=== PATIENT | female | born 1925 | race African-American/Black ===

== ENCOUNTER → 2016-07-22 | Outpatient (CLI) | payer MEDICARE, OTHER | END | disposition home or self-care (01) | LOC: MRI 10:35 | PROVIDERS: ATTEND Internal Medicine Critical Care Medicine | DX: Z53.8 Procedure and treatment not carried out for other reasons (principal); M54.10 Radiculopathy, site unspecified ==

== ENCOUNTER → 2016-11-09 | Outpatient (CLI) | payer MEDICARE, BC | END | disposition home or self-care (01) | LOC: CT 10:25 | PROVIDERS: ATTEND Internal Medicine Critical Care Medicine | DX: J84.9 Interstitial pulmonary disease, unspecified (principal); J92.9 Pleural plaque without asbestos; J98.4 Other disorders of lung; I77.819 Aortic ectasia, unspecified site; K82.8 Other specified diseases of gallbladder; R06.02 Shortness of breath; R63.4 Abnormal weight loss; Z95.0 Presence of cardiac pacemaker | CPT/HCPCS: 71250; 74150 ==